=== PATIENT | female | born 1990 | race African-American/Black ===

== ENCOUNTER 2020-01-04 17:45 | Observation (INO) | payer MEDICAID, OTHER ==
[~2020-01-04] VITALS: Ht 162.6 cm; Wt 113.4 kg
[2020-01-04 20:25] LABS: Urine Bacteria MANY /hpf (None Seen); Urine Blood Negative /uL (Negative); Urine Mucus FEW (None Seen); Urine Specific Gravity 1.021 (1.001-1.035); Urine WBC 17 /hpf (0 - 5)
[2020-01-04 20:36] LABS: Basophils # (auto) 0 10 ^3/uL (0-0.2); Basophils % (auto) 0.2 % (0.0-2.0); Eosinophils # (auto) 0.1 10 ^3/uL (0-0.8); Eosinophils % (auto) 0.7 % (0.0-7.0); Hematocrit 34.5 % (36.0-46.0); Hemoglobin 11.4 g/dL (12.2-16.2); Lymphocytes # (auto) 1.5 10 ^3/uL (0.4-5.4); Lymphocytes % (auto) 17.9 % (10.0-50.0); Mean Corpuscular Hemoglobin 30.8 pg (28.0-32.0); Mean Corpuscular Volume 93.3 fL (80.0-100.0); Monocytes # (auto) 0.7 10 ^3/uL (0-1.3); Monocytes % (auto) 7.7 % (0.0-12.0); Neutrophils # (auto) 6.2 10 ^3/uL (1.6-8.6); Neutrophils % (auto) 73.5 % (37.0-80.0); Platelet Count (auto) 147 10^3/uL (140-450); Red Cell Distribution Width 13.4 % (11.8-14.3); White Blood Cell 8.5 10^3/uL (4.4-10.8)
[2020-01-04 20:38] LABS: Alcohol, Urine < 3.0 mg/dL (0-10); Amphetamine Screen, Urine NEGATIVE (NEGATIVE); Barbiturate Scree,Urine NEGATIVE (NEGATIVE); Benzodiazephine Screen, Urine NEGATIVE (NEGATIVE); Cannabinoid Screen, Urine NEGATIVE (NEGATIVE); Cocaine Screen, Urine NEGATIVE (NEGATIVE); Opiate Scree,Urine NEGATIVE (NEGATIVE); Phencyclidine Screen, Urine NEGATIVE (NEGATIVE)
[2020-01-04 20:52] LABS: Albumin 2.4 g/dL (3.4-5.0); Potassium 3.5 mmol/L (3.5-5.1)
[2020-01-04 20:56] LABS: Bilirubin, Total 0.2 mg/dL (0.2-1.0); Total Protein 6.8 g/dL (6.4-8.2); Uric Acid 4.2 mg/dL (2.6-6.0)
[2020-01-04 21:26] LABS: INR 0.95 (0.9-1.15); Partial Thromboplastin Time 31.1 sec (23.64-32.05)
== END 2020-01-04 22:07 | disposition home or self-care (01) | DRG 566 ==
LOC: LDRP 17:45
PROVIDERS: ADMIT Specialist; ATTEND Specialist
DX: O62.9 Abnormality of forces of labor, unspecified (principal); O26.893 Other specified pregnancy related conditions, third trimester; H53.8 Other visual disturbances; R10.9 Unspecified abdominal pain; R10.2 Pelvic and perineal pain; R42 Dizziness and giddiness; O99.89 Other specified diseases and conditions complicating pregnancy, childbirth and the puerperium; M54.9 Dorsalgia, unspecified; Z3A.40 40 weeks gestation of pregnancy
CPT/HCPCS: 36415; 59025; 76818; 80053; 80307; 81001; 81002; 84550; 85025; 85362; 85379; 85610; 85730; G0378

== ENCOUNTER 2022-05-30 13:42 | Emergency (ER) | payer MEDICAID ==
[~2022-05-30] VITALS: Ht 162.6 cm; Wt 109.0 kg
[2022-05-30] MEDS ORDERED: PRED20TA2 PO (16:09)
[2022-05-30] MEDS ORDERED: IBUP800T27 PO (16:09)
[2022-05-30 16:14] VITALS: BP 127/75
== END 2022-05-30 16:19 | disposition home or self-care (01) ==
LOC: ER 13:42
DX: G56.01 Carpal tunnel syndrome, right upper limb (principal)

== ENCOUNTER 2022-06-16 12:06 | Emergency (ER) | payer MEDICAID ==
[~2022-06-16] VITALS: Ht 162.6 cm; Wt 101.0 kg
[~2022-06-16 12:06] MED LIST: IBUP800T27 PO; PRED20TA2 PO
[2022-06-16 12:42] VITALS: BP 129/62
[2022-06-16 13:59] LABS: Basophils # (auto) 0.1 10 ^3/uL (0-0.2); Basophils % (auto) 1.5 % (0.0-2.0); Eosinophils # (auto) 0 10 ^3/uL (0-0.8); Eosinophils % (auto) 0.8 % (0.0-7.0); Hematocrit 30.9 % (36.0-46.0); Lymphocytes # (auto) 1.9 10 ^3/uL (0.4-5.4); Lymphocytes % (auto) 37.9 % (10.0-50.0); Mean Corpuscular Hemoglobin 27.8 pg (28.0-32.0); Mean Corpuscular Hgb Conc. 32.5 g/dL (32.0-36.0); Mean Corpuscular Volume 85.6 fL (80.0-100.0); Monocytes # (auto) 0.3 10 ^3/uL (0-1.3); Monocytes % (auto) 5.2 % (0.0-12.0); Neutrophils # (auto) 2.7 10 ^3/uL (1.6-8.6); Neutrophils % (auto) 54.6 % (37.0-80.0); Nucleated Red Blood Cells % 0.1 %; Red Blood Cells 3.61 10^6/uL (4.0-5.20); Red Cell Distribution Width 15.1 % (11.8-14.3)
[2022-06-16 15:31] LABS: Albumin 3.5 g/dL (3.4-5.0); BUN/Creatinine Ratio 13.8; Calcium 8.5 mg/dL (8.5-10.1); Potassium 3.8 mmol/L (3.5-5.1)
[2022-06-16 15:35] LABS: Bilirubin, Total 0.2 mg/dL (0.2-1.0); Total Protein 7.5 g/dL (6.4-8.2)
== END 2022-06-16 17:22 | disposition home or self-care (01) ==
LOC: ER 12:06
DX: R56.9 Unspecified convulsions (principal); Z79.1 Long term (current) use of non-steroidal anti-inflammatories (NSAID); Z79.899 Other long term (current) drug therapy; Z86.69 Personal history of other diseases of the nervous system and sense organs
CPT/HCPCS: 36415; 70450; 80053; 85025

== ENCOUNTER 2025-01-16 07:12 | Emergency (ER) | payer MEDICAID ==
[~2025-01-16] VITALS: Ht 162.6 cm; Wt 104.9 kg
[~2025-01-16 07:12] MED LIST changes: +CIPR1SUS8 OT; +IBUP-1456 PO; -IBUP800T27 PO
[2025-01-16 08:19] VITALS: BP 104/69; PULSE 75; RESP 17; TEMP 98.1; O2SAT 98
== END 2025-01-16 10:12 | disposition left against medical advice (07) ==
LOC: ER 07:12
DX: R56.9 Unspecified convulsions (principal); Z76.0 Encounter for issue of repeat prescription; Z53.21 Procedure and treatment not carried out due to patient leaving prior to being seen by health care provider

== ENCOUNTER 2025-03-28 23:12 | Emergency (ER) | payer MEDICAID ==
[~2025-03-28] VITALS: Ht 162.6 cm; Wt 107.0 kg
[2025-03-28 23:47] VITALS: BP 146/96; RESP 18; TEMP 98; O2SAT 96
[2025-03-28 23:55] VITALS: PULSE 80
[2025-03-29] MEDS ORDERED: ACET500T58 PO (00:07)
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
[2025-03-29] MEDS: ACETAMINOPHEN 325 MG TAB PO ONE (00:31)
--- NOTE | 2025-03-29 01:07 | DVH ---
XY LUMBAR SPINE 3 VIEW CLINICAL HISTORY: LUMBAR BACK PAIN COMPARISON: None TECHNIQUE: Frontal and lateral view of the chest was obtained FINDINGS: IMPRESSION: 1. No acute lumbar fracture or listhesis. Mild multilevel degenerative changes of the lumbar spine . No acute soft tissue abnormalities.
--- NOTE | 2025-03-29 01:12 | DVH ---
Indication: HEAD INJURY Comparison: HEAD WITHOUT CONTRAST on DOS: 06/16/22, HWOCT on DOS: 06/16/22 Technique: Utilizing a multislice CT scanner, a CT scan of the brain was performed without intravenou s contrast. Coronal and sagittal reformatted images. All CT scans at this facility use dose modulation, iterative reconstruction, and/or weight based dosi ng when appropriate to reduce radiation dose to as low as reasonably achievable. Findings: There is no acute infarct, intracranial hemorrhage, or mass effect. There is no hydrocephalus or sign ificant midline shift. No acute, depressed calvarial fractures. No large scalp hematomas. Impression: 1. No acute intracranial process.
== END 2025-03-29 02:30 | disposition home or self-care (01) ==
LOC: ER 23:12
DX: S39.012A Strain of muscle, fascia and tendon of lower back, initial encounter (principal); S70.12XA Contusion of left thigh, initial encounter; S00.93XA Contusion of unspecified part of head, initial encounter; R42 Dizziness and giddiness; V89.2XXA Person injured in unspecified motor-vehicle accident, traffic, initial encounter; Y93.89 Activity, other specified; Y92.410 Unspecified street and highway as the place of occurrence of the external cause; Y99.8 Other external cause status
CPT/HCPCS: 70450; 72100